=== PATIENT | male | born 1960 | race Caucasian/White ===

== ENCOUNTER → 2016-11-18 | Outpatient (CLI) | payer OTHER ==
[~2016-11-18] MED LIST: CRG/20 PO; FRS/40 PO; LACT10SO30 PO; PRMT25 PO; SPIR50TA2 PO
[2016-11-18 12:14] LABS: BASO % 1.2 %; BASO ABS # 0.09 K/uL (0-0.2); COMPLETE YES; EOS % 4.2 %; HEMATOCRIT 40.4 % (42-52); IG% 1.9 %; LYMPH % 8.6 %; LYMPH ABS # 0.63 K/uL (1.2-3.4); MEAN CORPUSCULAR HEMOGLOBIN 35.9 pg (25-34); MEAN CORPUSCULAR HGB CONC 35.9 g/dl (32-36); MEAN PLATELET VOLUME 9.4 fL (7.4-10.4); NEUT % 71.1 %; PLATELET COUNT 158 K/uL (130-400); RED BLOOD COUNT 4.04 M/uL (4.7-6.1)
[2016-11-18 12:23] LABS: INR 1.3 (0.9-1.1); PROTHROMBIN TIME (PATIENT) 13.5 SECONDS (9.0-12.0)
[2016-11-18 12:33] LABS: ALT/SGPT 21 U/L (12-78); BLOOD UREA NITROGEN 5 mg/dl (7-18); BUN/CREATININE RATIO 6.5 (10-20); CALCIUM 9.2 mg/dl (8.5-10.1); CARBON DIOXIDE 26 mmol/L (21-32); CHLORIDE 95 mmol/L (98-107); CREATININE 0.75 mg/dl (0.60-1.40); GLUCOSE 100 mg/dl (70-99); POTASSIUM 3.5 mmol/L (3.5-5.1); SODIUM 133 mmol/L (136-145)
[2016-11-18 12:36] LABS: ALB/GLOB RATIO 0.6 (0.9-2); ALKALINE PHOSPHATASE 196 U/L (45-117); AST/SGOT 50 U/L (15-37)
[2016-11-21 15:36] LABS: AFP TUMOR MARKER SERUM 7.7 NG/ML (<6.1); HEP B QUANT <20 IU/mL (<20); HEP B QUANT LOG IU/ML <1.30 Log IU/mL (<1.30)
== END | disposition home or self-care (01) ==
LOC: C.LAB 10:52
PROVIDERS: ATTEND Nurse Practitioner Family
DX: K74.60 Unspecified cirrhosis of liver (principal); E53.8 Deficiency of other specified B group vitamins; E55.9 Vitamin D deficiency, unspecified; G93.40 Encephalopathy, unspecified

== ENCOUNTER → 2017-09-19 | Outpatient (CLI) | payer OTHER ==
[~2017-09-19] MED LIST changes: +CHOL1000 PO; +POTA10CA28 PO
[2017-09-19 16:48] LABS: BASO % 1.2 %; BASO ABS # 0.06 K/uL (0-0.2); EOS % 2.8 %; EOS ABS # 0.14 K/uL (0-0.5); HEMATOCRIT 28.1 % (42-52); HEMOGLOBIN 9.5 g/dL (14.0-18.0); IG# 0.04 K/uL (0.00-0.02); LYMPH % 12.8 %; LYMPH ABS # 0.64 K/uL (1.2-3.4); MEAN CELL VOLUME 92.4 fL (80-100); MEAN CORPUSCULAR HEMOGLOBIN 31.3 pg (25-34); MEAN CORPUSCULAR HGB CONC 33.8 g/dl (32-36); MEAN PLATELET VOLUME 9.4 fL (7.4-10.4); MONO % 18.8 %; MONO ABS # 0.94 K/uL (0.11-0.59); NEUT % 63.6 %; NEUT ABS # 3.18 K/uL (1.4-6.5); PLATELET COUNT 127 K/uL (130-400); RED CELL DISTRIBUTION WIDTH CV 16.4 % (11.5-14.5); RED CELL DISTRIBUTION WIDTH SD 54.5 fL (36.4-46.3)
[2017-09-19 17:56] LABS: ALBUMIN 2.3 gm/dl (3.4-5.0); ALKALINE PHOSPHATASE 127 U/L (45-117); ALT/SGPT 9 U/L (12-78); AST/SGOT 28 U/L (15-37); BLOOD UREA NITROGEN 8 mg/dl (7-18); CALCIUM 8.1 mg/dl (8.5-10.1); CARBON DIOXIDE 41 mmol/L (21-32); GLUCOSE 129 mg/dl (70-99); POTASSIUM 2.2 mmol/L (3.5-5.1); SODIUM 129 mmol/L (136-145); TOTAL PROTEIN 6.6 gm/dl (6.4-8.2)
== END | disposition home or self-care (01) ==
LOC: C.LAB 15:00
PROVIDERS: ATTEND Internal Medicine Hepatology
DX: K70.31 Alcoholic cirrhosis of liver with ascites (principal)

== ENCOUNTER 2017-09-20 16:59 | Emergency (ER) | payer OTHER ==
[~2017-09-20] VITALS: Ht 175.3 cm; Wt 61.4 kg
[~2017-09-20 16:59] MED LIST changes: -CHOL1000 PO; -POTA10CA28 PO
[2017-09-20 17:19] VITALS: TEMP 36.5; Ht 175.3 cm; Wt 61.4 kg
[2017-09-20] MEDS ORDERED: SODIUM CHLORIDE 0.9% 500ML 500 ML IV STA (17:38)
[2017-09-20] MEDS ORDERED: MIDODRINE 2.5 MG TAB PO STA (17:39)
--- NOTE | 2017-09-20 17:58 | DIAGNOSTIC IMAGING REPORT ---
CHEST ONE VIEW PORTABLE CLINICAL HISTORY: Pain, radiating to the abdomen. COMPARISON STUDY: No previous studies for comparison. FINDINGS: The heart is normal in size. There are bilateral pleural effusions. There are basilar airspace opacities likely atelectatic. There is no free intraperitoneal air. There is no lobar consolidation[ IMPRESSION: Bilateral pleural effusions. Bibasilar opacities, likely atelectatic Electronically signed by: Bin White M.D. 09/20/2017 5:57 PM Dictated Date/Time: 09/20/2017 5:56 PM
[2017-09-20 18:12] LABS: BASO % 1.5 %; BASO ABS # 0.07 K/uL (0-0.2); EOS % 3.5 %; EOS ABS # 0.16 K/uL (0-0.5); HEMATOCRIT 25.7 % (42-52); HEMOGLOBIN 8.9 g/dL (14.0-18.0); IG# 0.06 K/uL (0.00-0.02); LYMPH % 15.2 %; LYMPH ABS # 0.69 K/uL (1.2-3.4); MEAN CELL VOLUME 90.8 fL (80-100); MEAN CORPUSCULAR HEMOGLOBIN 31.4 pg (25-34); MEAN CORPUSCULAR HGB CONC 34.6 g/dl (32-36); MEAN PLATELET VOLUME 9.4 fL (7.4-10.4); MONO % 27.8 %; MONO ABS # 1.26 K/uL (0.11-0.59); NEUT % 50.7 %; PLATELET COUNT 127 K/uL (130-400); RED CELL DISTRIBUTION WIDTH CV 16.1 % (11.5-14.5); RED CELL DISTRIBUTION WIDTH SD 53.1 fL (36.4-46.3); WHITE BLOOD COUNT 4.54 K/uL (4.8-10.8)
[2017-09-20 18:46] LABS: ALBUMIN 2.2 gm/dl (3.4-5.0); CALCIUM 8.2 mg/dl (8.5-10.1); CREATININE 0.78 mg/dl (0.60-1.40); TOTAL PROTEIN 6.2 gm/dl (6.4-8.2)
[2017-09-20 18:47] LABS: POTASSIUM 2.4 mmol/L (3.5-5.1)
[2017-09-20] MEDS ORDERED: POTASSIUM CHLORIDE 10 MEQ / 100ML WTR IV STA ×2 (18:47→19:45)
[2017-09-20] MEDS ORDERED: POTASSIUM CHLORIDE 20 MEQ TABCR PO STA (18:47)
[2017-09-20] MEDS ORDERED: MAGNESIUM SULFATE 1GM / D5W 1 GM BAG IV STA (18:47)
[2017-09-20] MEDS: POTASSIUM CHLR 10MEQ / WTR IV SCH ×2 (19:17→20:15)
[2017-09-20] MEDS ORDERED: POTA10CA28 PO (19:18)
[2017-09-20] MEDS ORDERED: CHOL1000 PO (19:21)
--- NOTE | 2017-09-20 20:17 | EMERGENCY ROOM VISIT NOTE ---
History Report prepared by Anton: Comfort Chan Under the Supervision of: Dr. Eugenio Corea M.D. First contact with patient: 17:24 Chief Complaint: ABNORMAL LABS Stated Complaint: LOW POTASSIUM LEVEL OF 2.5 History of Present Illness The patient is a 57 year old white male with a past medical history of cirrhosis , hemochromatosis who presents to the ED with a cc of persistent low potassium starting yesterday. His potassium today was found to be 2.5. He was sent to the ED over cardiac concerns. He does not have any physical complaints. Negative abdominal pain, chest pain, SOB, cough, fever, chills, urinary symptoms, change in bowel movement. He has been eating and drinking well. Patient denies any recent medication changes. Source of History: patient Onset: yesterday Position: other (global) Symptom Intensity: 2.5 Quality: other (low potassium) Timing: other (persistent) Associated Symptoms: No fevers, No chills, No cough, No chest pain, No SOB, No abdominal pain, No urinary symptoms Review of Systems See HPI for pertinent positives and negatives. A total of ten systems were reviewed and were otherwise negative. Past Medical & Surgical Medical Problems: (1) Ascites (2) Cirrhosis (3) Erythema migrans (Lyme disease) (4) Hemochromatosis Family History FH: hemochromatosis Gallbladder disease Heart disease Hypertension Social History Smoking Status: Current Every Day Smoker Marital Status: Housing Status: lives with family Occupation Status: employed Current/Historical Medications Scheduled Cholecalciferol (Vitamin D3), 1 TAB PO DAILY Furosemide (Lasix), 80 MG PO BID Lactulose (Encephalopathy) (Lactulose), 30 ML PO BID Midodrine (Midodrine HCl), 7.5 MG PO TID Nadolol (Corgard), 20 MG PO QAM Potassium Chloride (Micro-K Ext Rel), 20 MEQ PO BID Spironolactone (Aldactone), 50 MG PO TID Allergies Coded Allergies: No Known Allergies (Verified , 08/19/15) Physical Exam Vital Signs Date Time Temp Pulse Resp B/P (MAP) Pulse Ox O2 Delivery O2 Flow Rate FiO2 09/20/17 21:00 56 18 97/61 98 Room Air 09/20/17 18:49 51 20 101/66 97 Room Air 09/20/17 18:46 59 18 92/68 09/20/17 18:07 53 16 86/63 97 Room Air 09/20/17 17:47 86 16 88/62 97 Room Air 09/20/17 17:19 36.5 65 18 84/53 98 Room Air Physical Exam GENERAL: Awake, alert, chronically ill-appearing, emaciated, NAD HENT: Normocephalic, atraumatic. EYES: Normal conjunctiva. Sclera non-icteric. NECK: Supple. No nuchal rigidity. FROM. RESPIRATORY: CTAB, no rhonchi, wheezing, crackles CARDIAC: Bradycardic and regular, no MRG ABDOMEN: Soft, NT, distended abdomen, positive fluid wave, BS+ MSK: No chest wall TTP, no LE edema. Prominent ribs showing. NEURO: GCS 15, CN 2-12 intact, moves all 4s on command SKIN: Mild jaundice of the skin. No rash. Medical Decision & Procedures ER Provider Diagnostic Interpretation: Radiology results as stated below per my review and radiologist interpretation: CHEST ONE VIEW PORTABLE CLINICAL HISTORY: Pain, radiating to the abdomen. COMPARISON STUDY: No previous studies for comparison. FINDINGS: The heart is normal in size. There are bilateral pleural effusions. There are basilar airspace opacities likely atelectatic. There is no free intraperitoneal air. There is no lobar consolidation[ IMPRESSION: Bilateral pleural effusions. Bibasilar opacities, likely atelectatic Electronically signed by: Bin White M.D. 09/20/2017 5:57 PM Dictated Date/Time: 09/20/2017 5:56 PM Laboratory Results 09/20/17 17:40 Red Blood Count 2.83, Mean Corpuscular Volume 90.8, Mean Corpuscular Hemoglobin 31.4, Mean Corpuscular Hemoglobin Concent 34.6, Mean Platelet Volume 9.4, Neutrophils (%) (Auto) 50.7, Lymphocytes (%) (Auto) 15.2, Monocytes (%) (Auto) 27.8, Eosinophils (%) (Auto) 3.5, Basophils (%) (Auto) 1.5, Neutrophils # (Auto ) 2.30, Lymphocytes # (Auto) 0.69, Monocytes # (Auto) 1.26, Eosinophils # (Auto ) 0.16, Basophils # (Auto) 0.07 09/20/17 17:40 Test 09/20/17 17:40 White Blood Count 4.54 K/uL (4.8-10.8) Red Blood Count 2.83 M/uL (4.7-6.1) Hemoglobin 8.9 g/dL (14.0-18.0) Hematocrit 25.7 % (42-52) Mean Corpuscular Volume 90.8 fL (80-100) Mean Corpuscular Hemoglobin 31.4 pg (25-34) Mean Corpuscular Hemoglobin Concent 34.6 g/dl (32-36) Platelet Count 127 K/uL (130-400) Mean Platelet Volume 9.4 fL (7.4-10.4) Neutrophils (%) (Auto) 50.7 % Lymphocytes (%) (Auto) 15.2 % Monocytes (%) (Auto) 27.8 % Eosinophils (%) (Auto) 3.5 % Basophils (%) (Auto) 1.5 % Neutrophils # (Auto) 2.30 K/uL (1.4-6.5) Lymphocytes # (Auto) 0.69 K/uL (1.2-3.4) Monocytes # (Auto) 1.26 K/uL (0.11-0.59) Eosinophils # (Auto) 0.16 K/uL (0-0.5) Basophils # (Auto) 0.07 K/uL (0-0.2) RDW Standard Deviation 53.1 fL (36.4-46.3) RDW Coefficient of Variation 16.1 % (11.5-14.5) Immature Granulocyte % (Auto) 1.3 % Immature Granulocyte # (Auto) 0.06 K/uL (0.00-0.02) Spherocytes 1+ Anion Gap 8.0 mmol/L (3-11) Est Creatinine Clear Calc Drug Dose 90.7 ml/min Estimated GFR () 116.1 Estimated GFR (Non- 100.2 BUN/Creatinine Ratio 9.1 (10-20) Calcium Level 8.2 mg/dl (8.5-10.1) Magnesium Level 1.7 mg/dl (1.8-2.4) Total Bilirubin 1.8 mg/dl (0.2-1) Direct Bilirubin 0.8 mg/dl (0-0.2) Aspartate Amino Transf (AST/SGOT) 30 U/L (15-37) Alanine Aminotransferase (ALT/SGPT) 11 U/L (12-78) Alkaline Phosphatase 128 U/L (45-117) Total Protein 6.2 gm/dl (6.4-8.2) Albumin 2.2 gm/dl (3.4-5.0) Lipase 351 U/L (73-393) Laboratory results reviewed by me Medications Administered Medications (Trade) Dose Ordered Sig/Nannette Route Start Time Stop Time Status Last Admin Dose Admin Midodrine (Proamatine Tab) 7.5 mg NOW STAT PO 09/20/17 17:39 09/20/17 17:40 DC 09/20/17 17:59 7.5 MG Sodium Chloride 500 ml @ 999 mls/hr Q31M STAT IV 09/20/17 17:38 09/20/17 18:08 DC 09/20/17 17:54 999 MLS/HR Magnesium Sulfate (Magnesium Sulfate) 1 gm NOW STAT IV 09/20/17 18:47 09/20/17 18:49 DC 09/20/17 19:16 1 GM Potassium Chloride 10 meq/ Prmx 100 ml @ 100 mls/hr Q1H IV 09/20/17 19:00 09/20/17 20:59 DC 09/20/17 20:15 100 MLS/HR Potassium Chloride 10 meq/ Prmx 100 ml @ 100 mls/hr Q1H IV 09/20/17 21:00 09/20/17 21:59 DC 09/20/17 20:15 100 MLS/HR ECG Indication: other (hypokalemia) Rate (beats per minute): 55 Rhythm: sinus bradycardia Findings: prolonged QT, other (T wave flattening inferior) ED Course 1726: The patient was evaluated in room B1. A complete history and physical exam was performed. 1858: I reevaluated the patient. He would like to be discharged home. Medical Decision The patient is a 57 year old white male with a past medical history of cirrhosis , hemochromatosis who presents to the ED with a cc of persistent low potassium starting yesterday. Differential diagnosis: medication side effect, fluid shift, potassium loss, decreased potassium uptake, hypomagnesemia Patient was seen and evaluated the bedside. Patient does have a known history of cirrhosis and states he does have hemachromatosis which may be the likely etiology of his cirrhosis. Patient does take midodrine and patient did have a mildly low blood pressure however the patient did not have any tachycardia. Of note patient does take a beta makenna. Patient had not taken his midodrine today, so it was ordered and given by pharmacy. Patient did have a bedside echocardiogram was performed which showed good concentric squeeze with a fairly normal EF. The IVC was difficult to evaluate given the patient's ascites that was seen on exam. Patient denied any abdominal pain during the exam. I do not believe that the patient requires a paracentesis at this time. The patient did have blood work that was completed which does show a chronic anemia. Patient also has some relative thrombocytopenia with platelet count of 127,000. Patient denies any spontaneous bleeding. Patient did have hypomagnesemia and hypokalemia. Patient's EKG did show some QT prolongation which is likely secondary to his electrolyte abnormalities. His other lab abnormalities are most likely related to his chronic liver disease. I did discuss the possibility of admission with the patient; however, the patient declined regardless of the circumstance at this time. The patient was repleted with IV and by mouth potassium as well as IV magnesium. I again did discuss medical admission with the patient declined. Patient was a and O 3 with a GCS of 15 and appeared to be able to make decisions relative to his healthcare and condition. Patient was told to follow-up with his specialist as well as his primary care physician. Patient was deemed suitable for outpatient follow-up and treatment as the patient declined medical admission at this time. Patient was given strict follow-up, discharge, and return precautions. All questions were answered. Patient was deemed suitable for outpatient follow-up at this time. Patient agreed with the plan of care and was safely discharged home. Medication Reconcilliation Current Medication List: was personally reviewed by me Blood Pressure Screening Patient's blood pressure: Low blood pressure Blood pressure disposition: Referred to PCP Impression Primary Impression: Hypokalemia Additional Impressions: Hypomagnesemia Anemia Thrombocytopenia Cirrhosis Scribe Attestation The scribe's documentation has been prepared under my direction and personally reviewed by me in its entirety. I confirm that the note above accurately reflects all work, treatment, procedures, and medical decision making performed by me. Departure Information Dispostion Home / Self-Care Referrals No Doctor, Assigned (PCP) Patient Instructions Hypokalemia Dc, Hypomagnesemia Dc, My [facility] Additional Instructions Please return to the emergency department if you have worsening or recurrent symptoms not amenable to at-home treatment. Please call for a follow-up appointment with her primary care physician. Please take your medications as prescribed. If you have other concerns and/or complaints please feel free to also call your primary care physician's office or return the ED for further evaluation, management, and treatment. Please follow-up with your primary care physician. Take your medications as prescribed. You have been examined and treated today on an emergency basis only. This is not a substitute for, or an effort to provide, complete comprehensive medical care. It is impossible to recognize and treat all injuries or illnesses in a single emergency department visit. It is therefore important that you follow up closely with [facility], your PCP, and/or your specialist(s). Call as soon as possible for an appointment. Thank you for your time and consideration. I look forward to speaking with you again soon. Please don't hesitate to call us if you have any questions. Problem Qualifiers Additional Impressions: Anemia Anemia type: unspecified type Qualified Codes: D64.9 - Anemia, unspecified Cirrhosis Hepatic cirrhosis type: unspecified hepatic cirrhosis Ascites presence: with ascites Qualified Codes: K74.60 - Unspecified cirrhosis of liver
[2017-09-20 21:00] VITALS: BP 97/61; PULSE 56; O2SAT 98
[2017-09-20] MEDS ORDERED: POTASSIUM CHLR 10MEQ / WTR IV SCH (21:00)
[2017-09-21 13:08] LABS: ISTAT CREATININE 1.1 mg/dl (0.6-1.3); ISTAT IONIZED CALCIUM 0.79 mmol/l (1.12-1.32); ISTAT POTASSIUM 4.4 mEq/L (3.3-5.0)
== END 2017-09-20 21:30 | disposition home or self-care (01) ==
LOC: C.EDB 16:59
DX: E87.6 Hypokalemia (principal); E83.42 Hypomagnesemia; D64.9 Anemia, unspecified; D69.6 Thrombocytopenia, unspecified; K74.60 Unspecified cirrhosis of liver; R00.1 Bradycardia, unspecified; F17.200 Nicotine dependence, unspecified, uncomplicated; Z79.899 Other long term (current) drug therapy; Z82.49 Family history of ischemic heart disease and other diseases of the circulatory system; Z83.79 Family history of other diseases of the digestive system

== ENCOUNTER → 2017-09-20 | Outpatient (CLI) | payer OTHER ==
[2017-09-20 15:12] LABS: BLOOD UREA NITROGEN 7 mg/dl (7-18); CALCIUM 8.5 mg/dl (8.5-10.1); CARBON DIOXIDE 36 mmol/L (21-32); CREATININE 0.75 mg/dl (0.60-1.40); GLUCOSE 106 mg/dl (70-99); SODIUM 130 mmol/L (136-145)
[2017-09-20 15:35] LABS: POTASSIUM 2.5 mmol/L (3.5-5.1)
== END | disposition home or self-care (01) ==
LOC: C.LAB 14:08
PROVIDERS: ATTEND Physician Assistant Medical
DX: E87.6 Hypokalemia (principal)

== ENCOUNTER → 2017-10-02 | Outpatient (CLI) | payer OTHER ==
[~2017-10-02] MED LIST changes: +CHOL1000 PO; +POTA10CA28 PO
[2017-10-02 15:49] LABS: BASO % 1.9 %; BASO ABS # 0.09 K/uL (0-0.2); EOS % 4.3 %; HEMOGLOBIN 9.4 g/dL (14.0-18.0); IG# 0.05 K/uL (0.00-0.02); LYMPH % 14.1 %; LYMPH ABS # 0.65 K/uL (1.2-3.4); MEAN CORPUSCULAR HEMOGLOBIN 31.2 pg (25-34); MEAN CORPUSCULAR HGB CONC 33.6 g/dl (32-36); MEAN PLATELET VOLUME 8.7 fL (7.4-10.4); MONO % 17.7 %; MONO ABS # 0.82 K/uL (0.11-0.59); NEUT % 60.9 %; NEUT ABS # 2.81 K/uL (1.4-6.5); PLATELET COUNT 175 K/uL (130-400); RED CELL DISTRIBUTION WIDTH SD 61.7 fL (36.4-46.3); WHITE BLOOD COUNT 4.62 K/uL (4.8-10.8)
== END | disposition home or self-care (01) ==
LOC: C.LAB 13:51
PROVIDERS: ATTEND Physician Assistant Medical
DX: K70.31 Alcoholic cirrhosis of liver with ascites (principal)

== ENCOUNTER → 2017-11-06 | Outpatient (CLI) | payer OTHER ==
[2017-11-06 11:59] LABS: BASO % 1.7 %; BASO ABS # 0.09 K/uL (0-0.2); EOS % 3.5 %; EOS ABS # 0.18 K/uL (0-0.5); HEMATOCRIT 28.2 % (42-52); HEMOGLOBIN 9.3 g/dL (14.0-18.0); IG# 0.04 K/uL (0.00-0.02); LYMPH % 13.2 %; LYMPH ABS # 0.68 K/uL (1.2-3.4); MEAN CELL VOLUME 88.7 fL (80-100); MEAN CORPUSCULAR HEMOGLOBIN 29.2 pg (25-34); MEAN PLATELET VOLUME 8.8 fL (7.4-10.4); MONO % 15.1 %; MONO ABS # 0.78 K/uL (0.11-0.59); NEUT % 65.7 %; PLATELET COUNT 131 K/uL (130-400); RED CELL DISTRIBUTION WIDTH CV 17.1 % (11.5-14.5); RED CELL DISTRIBUTION WIDTH SD 55.8 fL (36.4-46.3); WHITE BLOOD COUNT 5.17 K/uL (4.8-10.8)
== END | disposition home or self-care (01) ==
LOC: C.LAB 11:24
PROVIDERS: ATTEND Physician Assistant Medical
DX: K70.31 Alcoholic cirrhosis of liver with ascites (principal)

== ENCOUNTER → 2018-05-01 | Outpatient (CLI) | payer OTHER ==
[2018-05-01 12:17] LABS: BASO % 1.1 %; BASO ABS # 0.07 K/uL (0-0.2); EOS % 2.4 %; EOS ABS # 0.15 K/uL (0-0.5); HEMATOCRIT 34.8 % (42-52); HEMOGLOBIN 12.1 g/dL (14.0-18.0); IG# 0.09 K/uL (0.00-0.02); INR 1.3 (0.9-1.1); LYMPH % 10.3 %; LYMPH ABS # 0.65 K/uL (1.2-3.4); MEAN CELL VOLUME 89.9 fL (80-100); MEAN CORPUSCULAR HEMOGLOBIN 31.3 pg (25-34); MEAN CORPUSCULAR HGB CONC 34.8 g/dl (32-36); MEAN PLATELET VOLUME 8.8 fL (7.4-10.4); MONO % 13.1 %; MONO ABS # 0.83 K/uL (0.11-0.59); NEUT % 71.7 %; NEUT ABS # 4.54 K/uL (1.4-6.5); PLATELET COUNT 107 K/uL (130-400); RED CELL DISTRIBUTION WIDTH CV 16.2 % (11.5-14.5); RED CELL DISTRIBUTION WIDTH SD 52.8 fL (36.4-46.3); WHITE BLOOD COUNT 6.33 K/uL (4.8-10.8)
[2018-05-01 12:41] LABS: ALBUMIN 2.6 gm/dl (3.4-5.0); ALKALINE PHOSPHATASE 126 U/L (45-117); ALT/SGPT 22 U/L (12-78); AST/SGOT 37 U/L (15-37); BLOOD UREA NITROGEN 11 mg/dl (7-18); CALCIUM 8.7 mg/dl (8.5-10.1); CARBON DIOXIDE 27 mmol/L (21-32); CREATININE 0.89 mg/dl (0.60-1.40); GLUCOSE 104 mg/dl (70-99); POTASSIUM 3.7 mmol/L (3.5-5.1); SODIUM 130 mmol/L (136-145); TOTAL PROTEIN 6.5 gm/dl (6.4-8.2)
== END | disposition home or self-care (01) ==
LOC: C.LAB 11:19
PROVIDERS: ATTEND Physician Assistant Medical
DX: K74.60 Unspecified cirrhosis of liver (principal)